=== PATIENT | male | born 1985 | race Hispanic/Latino ===

== ENCOUNTER 2020-12-31 19:06 | Emergency (ER) | payer OTHER ==
[~2020-12-31] VITALS: Ht 182.9 cm; Wt 96.2 kg
[2020-12-31 19:47] LABS: BASOPHILS % (AUTO) 0.4 % (0.0-5.0); EOSINOPHILS % (AUTO) 2.1 % (0.0-8.0); HEMATOCRIT 41.4 % (42-54); LYMPHOCYTES % (AUTO) 41.1 % (21.0-51.0); MEAN CORPUSCULAR HEMOGLOBIN 28.4 pg (27.0-33.0); MEAN CORPUSCULAR HGB CONC 34.8 g/dL (32.0-36.0); MEAN CORPUSCULAR VOLUME 81.7 fL (79-99); MONOCYTES % (AUTO) 9.4 % (3.0-13.0); NEUTROPHILS % (AUTO) 46.6 % (40.0-77.0); PLATELET COUNT (AUTO) 182 K/uL (130-400); RED BLOOD CELL COUNT(AUTO) 5.07 MIL/uL (4.50-6.20); RED CELL DISTRIBUTION WIDTH 12.7 % (11.0-15.5); WHITE BLOOD COUNT (AUTO) 7.2 K/uL (4.8-10.8)
[2020-12-31 19:54] VITALS: BP 139/89
[2020-12-31 19:58] LABS: CARBON DIOXIDE 29 mmol/L (21-32); CHLORIDE 101 mmol/L (101-111); GLOMERULAR FILTR. RATE CALC 91 mL/min (>60); GLUCOSE,RANDOM 364 mg/dL (70-105); POTASSIUM 3.9 mmol/L (3.5-5.1); SODIUM SERUM 138 mmol/L (136-145); UREA NITROGEN, BLOOD 11 mg/dL (7-18)
[2020-12-31 20:00] LABS: INR 1.05 (0.85-1.15); PROTHROMBIN TIME 11.4 SEC (9.6-11.6)
[2020-12-31 20:05] LABS: ALANINE AMINOTRANSFERASE 84 U/L (12-78); ALBUMIN 4.1 g/dL (3.5-5.0); ASPARTATE AMINOTRANSFERASE 43 U/L (10-37); BILIRUBIN,TOTAL 0.9 mg/dL (0.2-1.0); TOTAL PROTEIN, SERUM 7.9 g/dL (6.0-8.3)
[2020-12-31 20:18] LABS: CRP QUANTITATIVE < 2.00 mg/L (0.00-9.0)
== END 2020-12-31 21:34 | disposition home or self-care (01) ==
LOC: EDH 19:26
DX: R19.5 Other fecal abnormalities (principal); I10 Essential (primary) hypertension; E11.9 Type 2 diabetes mellitus without complications
CPT/HCPCS: 36415; 80053; 82270; 85025; 85610; 86140

== ENCOUNTER 2021-12-14 13:20 | Emergency (ER) | payer OTHER ==
[~2021-12-14] VITALS: Ht 182.9 cm; Wt 95.3 kg
[2021-12-14 13:24] VITALS: BP 138/98
[2021-12-14] MEDS ORDERED: ALBU2.5V2 IH (14:05)
[2021-12-14] MEDS ORDERED: NIRM1TAB PO (14:05)
== END 2021-12-14 14:10 | disposition home or self-care (01) ==
LOC: EDH 13:20
DX: U07.1 COVID-19 (principal)